=== PATIENT | male | born 1945 | race Caucasian/White ===

== ENCOUNTER 2017-04-20 07:47 | Outpatient (CLI) | payer MEDICARE, OTHER ==
[~2017-04-20] VITALS: Ht 172.7 cm; Wt 83.9 kg
[~2017-04-20 07:47] MED LIST: FISH1000 PO; OMEG100011 PO; VIAG100T PO; VITA100066 PO
[2017-04-20] MEDS ORDERED: NS 1,000 ML IV ONE (08:15)
[2017-04-20] MEDS ORDERED: LIDOCAINE 2% INJ 100 MG/5 ML SDV (FOR ANES.) As Ordered ONE (09:13)
[2017-04-20] MEDS ORDERED: PROPOFOL 200 MG/20 ML VIAL As Ordered ONE (09:13)
--- NOTE | 2017-04-20 09:27 | ROOR ---
Patient Name: Cali Gipson Procedure Date: 04/20/2017 9:10 AM Date of : 1945 Age: 71 Room: [facility] Gender: Male Note Status: Finalized Procedure: Colonoscopy Indications: High risk colon cancer surveillance: Personal history of colonic polyps, Last colonoscopy: February 2014 Providers: Ace DUMAS MD Referring MD: JEANNIE MELGOZA NP Requesting Provider: Medicines: Monitored Anesthesia Care Complications: No immediate complications. Procedure: Pre-Anesthesia Assessment: - The heart rate, respiratory rate, oxygen saturations, blood pressure, adequacy of pulmonary ventilation, and response to care were monitored throughout the procedure. The Colonoscope was introduced through the anus and advanced to the cecum, identified by appendiceal orifice and ileocecal valve. The colonoscopy was performed without difficulty. The patient tolerated the procedure well. The quality of the bowel preparation was good. Findings: The perianal and digital rectal examinations were normal. Two sessile polyps were found in the sigmoid colon and ascending colon. The polyps were diminutive in size. These polyps were removed with a cold snare. Resection and retrieval were complete. Mild diverticulosis and small internal hemorrhoids. The exam was otherwise without abnormality on direct and retroflexion views. Impression: - Two diminutive polyps in the sigmoid colon and in the ascending colon, removed with a cold snare. Resected and retrieved. - Mild diverticulosis and small internal hemorrhoids. - The examination was otherwise normal on direct and retroflexion views. Recommendation: - Repeat colonoscopy in 5 years for surveillance based on personal history of previous adenomatous polyps. Ace Dumas MD Ace DUMAS MD 04/20/2017 9:27:08 AM This report has been signed electronically. Number of Addenda: 0 Note Initiated On: 04/20/2017 9:10 AM Estimated Blood Loss: Estimated blood loss: none.
[2017-04-20 09:48] VITALS: BP 150/70
== END 2017-04-20 09:57 | disposition home or self-care (01) ==
LOC: M OPP 07:47
PROVIDERS: ATTEND Internal Medicine Gastroenterology
DX: Z12.11 Encounter for screening for malignant neoplasm of colon (principal); Z86.010 Personal history of colon polyps; D12.5 Benign neoplasm of sigmoid colon; D12.2 Benign neoplasm of ascending colon; K57.30 Diverticulosis of large intestine without perforation or abscess without bleeding; K64.8 Other hemorrhoids; M19.90 Unspecified osteoarthritis, unspecified site; G89.4 Chronic pain syndrome; Z96.641 Presence of right artificial hip joint; Z96.652 Presence of left artificial knee joint; Z88.0 Allergy status to penicillin; Z80.42 Family history of malignant neoplasm of prostate